=== PATIENT | female | born 1960 | race Caucasian/White ===

== ENCOUNTER → 2025-03-08 18:45 | Outpatient (REF) | payer MEDICARE, SELFPAY | LOC: CLAB 18:45 | PROVIDERS: ATTENDING PHYSICIAN Physician Assistant | DX: H66.91 Otitis media, unspecified, right ear (principal) | CPT/HCPCS: 87070 ==

== ENCOUNTER → 2025-05-13 06:32 | Outpatient (REF) | payer MEDICARE, SELFPAY ==
[2025-05-13 09:03] LABS: Hematocrit 39.8 % (37.0-47.0); Hemoglobin 13.6 g/dL (12.0-16.0); Mean Corp Hgb Conc. 34.2 g/dL (33.0-37.0); Mean Corpuscular Volume 93.2 fL (81.0-99.0); Platelet Count 361 10^3/uL (130-400); Red Cell Dist. Width 13.5 % (11.5-14.5)
[2025-05-13 09:53] LABS: Blood Urea Nitrogen 13 mg/dl (7-17); Calcium 9.3 mg/dl (8.4-10.2); Carbon Dioxide 27 mmol/L (22-30); Chloride 105 mmol/L (98-107); Glucose 85 mg/dl (70-99); Potassium 4.7 mmol/L (3.5-5.1); Sodium 136 mmol/L (135-145); eGFR > 60.00
== END ==
LOC: SDSPAT 06:32
PROVIDERS: ATTENDING PHYSICIAN Otolaryngology; FAMILY PHYSICIAN Physician Assistant Medical
DX: Z01.818 Encounter for other preprocedural examination (principal)
CPT/HCPCS: 80048; 85027; 93005

== ENCOUNTER 2025-05-26 06:30 | Day surgery (SDC) | payer MEDICARE, SELFPAY ==
[2025-05-13 13:43] VITALS: BMI 25.5
[2025-05-26] VITALS (7 sets, daily range): BP systolic 123–139; BP diastolic 68–80; BMI 25.5
[2025-05-26] MEDS: TYLENOL 1000 MG PO (10:52)
[2025-05-26] MEDS: NORMOSOL-R/PLASMALYTE-A 1000 IV (10:52)
== END 2025-05-26 17:48 | disposition home or self-care (01) ==
LOC: SDS 06:30
PROVIDERS: ATTENDING PHYSICIAN Otolaryngology; FAMILY PHYSICIAN Physician Assistant Medical
DX: H72.91 Unspecified perforation of tympanic membrane, right ear (principal)
CPT/HCPCS: 69631